=== PATIENT | male | born 1985 ===

== ENCOUNTER 2016-07-17 19:03 | Inpatient (IN) | payer MEDICAID ==
[~2016-07-17] VITALS: Ht 167.6 cm; Wt 59.8 kg
[2016-07-17] MEDS ORDERED: LORazepam 2 MG TABLET PO PRN (21:15)
[2016-07-17] MEDS ORDERED: HALOPERIDOL 5 MG TABLET PO PRN (21:15)
[2016-07-17] MEDS ORDERED: OLAN10TA3 PO (21:27)
[2016-07-17 21:29] VITALS: BP 129/74
[2016-07-17 21:41] VITALS: BP 130/66
[2016-07-17] MEDS ORDERED: INFLUENZA VIRUS VACCINE QVS 2016-17 (3YR+)/PF 60 MCG/0.5 ML SYRINGE IM ONE (21:45)
[2016-07-17] MEDS: ZOLPIDEM TARTRATE 10 MG TABLET PO PRN (22:02)
[2016-07-18 06:13] VITALS: BP 118/60
[2016-07-18 08:38] LABS: BASOPHILS % (AUTO) 0.8 % (0.0-2.0); EOSINOPHILS % (AUTO) 3.3 % (1.0-6.0); HEMATOCRIT 41.2 % (41-53); HEMOGLOBIN 13.4 g/dL (13.5-17.5); LYMPHOCYTES # (AUTO) 1.8 K/uL (1.0-4.8); LYMPHOCYTES % (AUTO) 48.9 % (22.0-44.0); MEAN CORPUSCULAR HEMOGLOBIN 28.9 pg (26.0-34.0); MEAN CORPUSCULAR HGB CONC 32.5 G/dL (31.0-37.0); MEAN CORPUSCULAR VOLUME 89 fL (80-100); MONOCYTES # (AUTO) 0.4 K/uL (0.1-1.0); NEUTROPHILS # (AUTO) 1.3 K/uL (1.8-7.7); PLATELET COUNT (AUTO) 229 K/uL (150-450); RED BLOOD CELL COUNT(AUTO) 4.65 MIL/uL (4.50-5.90); RED CELL DISTRIBUTION WIDTH 13.6 % (11.5-14.5); WHITE BLOOD COUNT (AUTO) 3.6 K/uL (4.5-11.0)
[2016-07-18 08:51] VITALS: BP 101/60
[2016-07-18] MEDS: NICOTINE 7 MG/24 HOUR PATCH TD SCH ×2 (09:00→12:16)
[2016-07-18 09:10] LABS: HEMOGLOBIN A1C 5.5 % (4.5-6.2)
[2016-07-18 09:13] LABS: ALANINE AMINOTRANSFERASE 37 U/L (12-78); ALBUMIN 3.4 g/dL (3.4-5.0); ANION GAP 10 mmol/L (8-16); ASPARTATE AMINOTRANSFERASE 23 U/L (15-37); BILIRUBIN,TOTAL 0.2 mg/dL (0.1-1.0); CARBON DIOXIDE 26 mmol/L (22-29); CHLORIDE 104 mmol/L (98-107); CHOL/HDL RATIO 2.9 (4.2-7.3); GLOMERULAR FILTR. RATE CALC > 60 mL/min (>60); POTASSIUM 4.5 mmol/L (3.5-5.1); SODIUM SERUM 140 mmol/L (136-145); TOTAL PROTEIN, SERUM 6.7 g/dL (6.4-8.2); UREA NITROGEN, BLOOD 19 mg/dL (7-18)
[2016-07-18 09:14] LABS: THYROID STIMULATING HORMONE 0.18 uIU/mL (0.36-3.74)
[2016-07-18] MEDS ORDERED: LOPERAMIDE HCL 2 MG CAPSULE PO PRN (10:15)
[2016-07-18] MEDS ORDERED: BACITRACIN 28.4 GM OINTMENT TP PRN (10:15)
[2016-07-18] MEDS ORDERED: BENZOCAINE/MENTHOL LOZENGE MM PRN (10:15)
[2016-07-18] MEDS ORDERED: IBUPROFEN 600 MG TABLET PO PRN (10:15)
[2016-07-18] MEDS ORDERED: ALBUTEROL SULFATE HFA 90 MCG/PUFF 8 GM INHALER IH PRN (10:15)
[2016-07-18] MEDS ORDERED: MAGNESIUM HYDROXIDE SUSPENSION 30 ML UDCUP PO PRN (10:15)
[2016-07-18] MEDS ORDERED: MAG HYDROX/AL HYDROX/SIMETH ES 30 ML SUSPENSION UDCUP PO PRN (10:15)
[2016-07-18] MEDS ORDERED: ACETAMINOPHEN 325 MG TABLET PO PRN (10:15)
[2016-07-18] MEDS ORDERED: CloNIDine HCL 0.1 MG TABLET PO PRN (10:15)
[2016-07-18] MEDS ORDERED: ONDANSETRON HCL 4 MG TABLET PO PRN (10:15)
[2016-07-18] MEDS ORDERED: PETROLATUM,WHITE 71 GM JELLY TP PRN (10:15)
[2016-07-18 16:27] VITALS: BP 134/76
[2016-07-18] MEDS: OLANZapine 7.5 MG TABLET PO SCH (20:25)
[2016-07-19 00:45] VITALS: BP 119/68
[2016-07-19 08:48] VITALS: BP 110/69
[2016-07-19] MEDS: NICOTINE 7 MG/24 HOUR PATCH TD SCH (09:53)
[2016-07-19 17:32] VITALS: BP 117/65
[2016-07-19] MEDS: OLANZapine 7.5 MG TABLET PO SCH (20:11)
[2016-07-19] MEDS: ZOLPIDEM TARTRATE 10 MG TABLET PO PRN (20:11)
[2016-07-20 06:03] VITALS: BP 122/82
[2016-07-20 08:08] VITALS: BP 117/64
[2016-07-20] MEDS: NICOTINE 7 MG/24 HOUR PATCH TD SCH (09:50)
[2016-07-20] MEDS ORDERED: OLAN5Z PO (12:39)
== END 2016-07-20 14:00 | disposition home or self-care (01) | DRG 750 ==
LOC: B2S 21:25
PROVIDERS: ADMIT Psychiatry & Neurology Psychiatry; ATTEND Psychiatry & Neurology Psychiatry
PROC: 3E0234Z Introduction of Serum, Toxoid and Vaccine into Muscle, Percutaneous Approach (ICD-10-PCS; principal; 2016-07-17)
DX: F25.9 Schizoaffective disorder, unspecified (principal); R45.851 Suicidal ideations; Z59.0 Homelessness; F12.90 Cannabis use, unspecified, uncomplicated; F31.9 Bipolar disorder, unspecified; F17.200 Nicotine dependence, unspecified, uncomplicated; Z98.890 Other specified postprocedural states; Z71.6 Tobacco abuse counseling; Z79.899 Other long term (current) drug therapy; Z23 Encounter for immunization
CPT/HCPCS: 83036; 84439; 84443; 86592; 87081; 90471